=== PATIENT | female | born 1950 | race Caucasian/White ===

== ENCOUNTER 2017-06-07 16:33 | Observation (INO) | payer OTHER ==
--- NOTE | 2017-06-07 16:57 | CPEKG ---
Heart Rate: 78 RR Interval: 769 P-R Interval: 160 QRSD Interval: 84 QT Interval: 368 QTC Interval: 420 P [place]: 72 QRS [place]: 50 T Wave [place]: 49 EKG Severity - NORMAL ECG - EKG Impression: SINUS RHYTHM Electronically Signed By: Cara Arroyo 07-Jun-2017 23:12:08
[2017-06-07] MEDS ORDERED: NITROGLYCERIN 0.4 MG BTL SL PRN (17:15)
--- NOTE | 2017-06-07 17:15 | EDPHY ---
HPI/HX/ROS/PE/MDM Narrative: CHIEF COMPLAINT: Chest pain, high blood pressure HISTORY OF PRESENT ILLNESS: The patient is a 66 y/o female with a history of hypertension arriving with her son for chest pain and high blood pressure. A week ago, on Friday, May 31, the patient flew to [place]. On Friday, she began having chest pain. She took her blood pressure and found it to be 189/100. She went to an ED in [place], which admitted her with a blood pressure of 205/115. They found her troponin to be negative and advised a stress test. She decided to wait until she returned to [place] for a stress test. Her blood pressure was high on Friday and the doctor in [place] advised her to double her losartan. For the next few days she had blood pressures in the 140s and intermittent chest pain. She returned to [place] today and had worsened chest pain and high blood pressure prompting her visit. She had associated nausea on Friday. She denies vomiting or other associated symptoms. The pain occurs at rest and is not worse with exertion. She takes a baby aspirin daily. She denies history of blood clots or diabetes. No fever, chills, shortness of breath, palpitations, vomiting, diarrhea, urinary complaints, headache, lightheadedness. REVIEW OF SYSTEMS: Aside from elements discussed in the HPI, a comprehensive 10-point review of systems was reviewed and is negative. PAST MEDICAL HISTORY: Hypertension SOCIAL HISTORY: Son at bedside, lives in [place], visited [place] VITAL SIGNS: Reviewed by me GENERAL: Well-developed, well-nourished, resting comfortably in no respiratory distress. HEENT: Atraumatic. Eyes: No icterus, no injection. Mouth: moist mucous membranes. No erythema or lesions. Neck: supple with no adenopathy. LUNGS: Clear to auscultation bilaterally, no wheezes, rhonchi or rales. CARDIAC: Regular rate and rhythm, no rubs, murmurs or gallops. ABDOMEN: Soft, nontender, nondistended, bowel sounds normal. BACK: No CVA tenderness. EXTREMITIES: No trauma. No edema. Range of motion is normal throughout. NEURO: Alert and oriented, grossly nonfocal. SKIN: Warm and dry, no rash. PSYCHIATRIC: Normal mentation, no agitation. ED Course: The patient presents with chest pain and high blood pressure. She has had these symptoms intermittently for almost a week and was advised to have a stress test. She elected to wait on the stress test. Plan for EKG, cardiac labs, and chest X-ray. Her EKG is normal sinus rhythm. Labs are normal. Troponin is negative. I feel that she needs admission. I spoke to the hospitalist service regarding admission for this patient. They agree to admit. I spoke with this patient regarding the results of her workup. She agrees to this course of action. 10pm: Due to the bed situation in the hospital the patient will likely remain in the emergency department awaiting an inpatient bed. 2nd troponin was ordered by myself. Patient is aware of the situation. MDM: After history and physical examination, the differential for chest pain was considered, including but not limited to, myocardial ischemia, acute coronary syndrome, pulmonary embolus, chest wall pain, pleural inflammation and pulmonary infectious causes. - Data Points Imaging Results: Imaging Impressions Chest X-Ray 06/07/17 17:15 Impression: Clear lungs. No acute process. Laboratory Results: Laboratory Results 06/07/17 18:20 06/07/17 18:20 06/07/17 06/07/17 18:20 18:20 WBC 7.46 10^3/uL 10^3/uL (3.80-9.50) RBC 4.25 10^6/uL 10^6/uL (4.18-5.33) Hgb 14.4 g/dL g/dL (12.6-16.3) Hct 42.2 % % (38.0-47.0) MCV 99.3 fL fL (81.5-99.8) MCH 33.9 pg pg (27.9-34.1) MCHC 34.1 g/dL g/dL (32.4-36.7) RDW 12.3 % % (11.5-15.2) Plt Count 263 10^3/uL 10^3/uL (150-400) MPV 8.7 fL fL (8.7-11.7) Neut % (Auto) 62.9 % % (39.3-74.2) Lymph % (Auto) 25.7 % % (15.0-45.0) [place] % (Auto) 9.2 % % (4.5-13.0) Eos % (Auto) 1.3 % % (0.6-7.6) Baso % (Auto) 0.5 % % (0.3-1.7) Nucleat RBC Rel Count 0.0 % % (0.0-0.2) Absolute Neuts (auto) 4.68 10^3/uL 10^3/uL (1.70-6.50) Absolute Lymphs (auto) 1.92 10^3/uL 10^3/uL (1.00-3.00) Absolute Monos (auto) 0.69 10^3/uL 10^3/uL (0.30-0.80) Absolute Eos (auto) 0.10 10^3/uL 10^3/uL (0.03-0.40) Absolute Basos (auto) 0.04 10^3/uL 10^3/uL (0.02-0.10) Absolute Nucleated RBC 0.00 10^3/uL 10^3/uL (0-0.01) Immature Gran % 0.4 % % (0.0-1.1) Immature Gran # 0.03 10^3/uL 10^3/uL (0.00-0.10) Sodium 146 mEq/L H mEq/L (135-145) Potassium 4.0 mEq/L mEq/L (3.5-5.2) Chloride 108 mEq/L mEq/L (97-110) Carbon Dioxide 27 mEq/l mEq/l (22-31) Anion Gap 11 mEq/L mEq/L (8-16) BUN 20 mg/dL mg/dL (7-23) Creatinine 0.6 mg/dL mg/dL (0.6-1.0) Estimated GFR > 60 Glucose 106 mg/dL H mg/dL (70-100) Calcium 9.9 mg/dL mg/dL (8.5-10.4) Creatine Kinase 60 IU/L IU/L (0-156) CK-MB (CK-2) Fraction 2.13 ng/mL ng/mL (0.00-3.19) Troponin I < 0.012 ng/mL ng/mL (0.000-0.034) General Time Seen by Provider: 06/07/17 16:54 Initial Vital Signs: Initial Vital Signs Temperature (C) 37.0 C 06/07/17 16:37 Heart Rate 88 06/07/17 16:37 Respiratory Rate 16 06/07/17 16:37 Blood Pressure 189/100 H 06/07/17 16:37 O2 Sat (%) 99 06/07/17 16:37 O2 Delivery Mode Room Air Allergies/Adverse Reactions: azithromycin Allergy (Verified 06/07/17 19:28) Rash Home Medications: Medication Instructions Recorded Acetaminophen [Tylenol ES 500 mg 500 mg PO Q6 PRN 06/07/17 (*)] Ascorbic Acid [Vitamin C 500 mg 500 mg PO DAILY 06/07/17 (*)] Carvedilol [Coreg (*)] 6.25 mg PO BIDMEAL 06/07/17 Cholecalciferol Vit D3 [Vitamin D3 1,000 units PO DAILY 06/07/17 (*)] Cyanocobalamin [Vitamin B12 (*)] 1,000 mcg PO DAILY 06/07/17 Losartan Potassium [Cozaar 50 mg 100 mg PO DAILY 06/07/17 (*)] Ranitidine HCl [Zantac 75] 75 mg PO BID PRN 06/07/17 Departure - Departure Disposition: [facility] Inpatient Acute Clinical Impression: rule out acute coronary syndrome Hypertension Qualifiers: Hypertension type: unspecified Qualified Code(s): I10 - Essential (primary) hypertension Chest pain Qualifiers: Chest pain type: unspecified Qualified Code(s): R07.9 - Chest pain, unspecified Condition: Fair Report Scribed for: Cara Arroyo Report Scribed by: Ashley Guerrero Date of Report: 06/07/17 Time of Report: 17:18 Physician Review and Approval Statement: Portions of this note were transcribed by a medical pathologist. I personally performed a history, physical exam, medical decision making, and confirmed accuracy of information the transcribed note.
[2017-06-07 18:32] LABS: PLATELET COUNT 263 10^3/uL (150-400)
[2017-06-07 18:43] LABS: CREATINE KINASE 60 IU/L (0-156)
[2017-06-07] MEDS ORDERED: ACETAMINOPHEN 325 MG TAB PO PRN (22:36)
[2017-06-07] MEDS ORDERED: ONDANSETRON 4 MG/2 ML VIAL IVP PRN (22:36)
[2017-06-07] MEDS ORDERED: HYDROCODONE/APAP 5/325 TAB PO PRN (22:36)
[2017-06-08] MEDS ORDERED: hydrALAZINE 20 MG/ML VIAL IVP PRN (00:25)
--- NOTE | 2017-06-08 00:31 | PDGENHP ---
History and Physical - Chief Complaint chest pain - History of Present Illness Source - patient provides history appears reliable. EMR reviewed. Patient's discharge packet from [facility] and [place] also reviewed. HPI - pleasant 66-year-old female past medical history of HTN, GERD who presents emergency department today with complaints of 1 day history of chest pain. Patient reports she has had a history of intermittent similar chest "twinges "on the left side of her chest. She traveled to [place] to visit with family. On 06 02 17 patient presented to the emergency department in [place] for evaluation of her chest pain. She had initial cardiac rule out but declined to stay for a stress test at that time. Patient reports her initial blood pressure on presentation there was 205/115. She denies any associated shortness of breath dizziness palpitations diaphoresis or nausea. Patient without any history of orthopnea, PND, lower extremity edema. Patient is currently on losartan 100 mg p.o. daily and Coreg 6.25mg twice daily. Family history is significant for father with history of CAD without stents at age 60s, HTN. Today patient return from [place]. She reports that she carried her case up a flight and half of stairs sometime data labs before onset of her symptoms which occurred at rest today approximately 12:30 p.m. patient without any associated symptoms or radiating pain. Patient did check her blood pressure at home systolic was noted to be 189. She denied any headache nausea vomiting shortness of breath. Patient presented to the emergency department this afternoon when her chest pain would not resolve. History Information - Allergies/Home Medication List Allergies/Adverse Reactions: azithromycin Allergy (Verified 06/07/17 19:28) Rash Home Medications: Acetaminophen [Tylenol ES 500 mg (*)] 500 mg PO Q6 PRN 06/07/17 [Last Taken ] Ascorbic Acid [Vitamin C 500 mg (*)] 500 mg PO DAILY 06/07/17 [Last Taken ] Carvedilol [Coreg (*)] 6.25 mg PO BIDMEAL 06/07/17 [Last Taken 06/07/17 AM] Cholecalciferol Vit D3 [Vitamin D3 (*)] 1,000 units PO DAILY 06/07/17 [Last Taken 06/04/17] Cyanocobalamin [Vitamin B12 (*)] 1,000 mcg PO DAILY 06/07/17 [Last Taken ] Losartan Potassium [Cozaar 50 mg (*)] 100 mg PO DAILY 06/07/17 [Last Taken 06/07] Ranitidine HCl [Zantac 75] 75 mg PO BID PRN 06/07/17 [Last Taken Unknown] I have personally reviewed and updated: family history, medical history, social history, surgical history - Past Medical History Additional medical history: htn. gerd - Surgical History Additional surgical history: retinal detatchment - Family History Additional family history: father - CAD no stents/angina, HTN. mother - thyroid disease, cervical ca, Parkinson's. brother - HTN. son - healthy - Social History Smoking Status: Never smoked Alcohol Use: Occasionally Drug Use: None Additional social history: lives alone. COR - DNI. okay with cardiac resuscitation. Son Juan Luis Martins to act as proxy if needed. Review of Systems Review of Systems: ROS: 10pt was reviewed & negative except for what was stated in HPI & below Constitutional: Denies: chills, fever EENMT: Reports: nose congestion, other (sinus). Denies: sore throat Cardiac: Reports: chest pain. Denies: edema, lightheadedness, palpitations Respiratory: Reports: no symptoms. Denies: cough, shortness of breath Gastrointestinal: Reports: no symptoms Genitourinary: Reports: no symptoms Muscolosketal: Reports: no symptoms Skin: Reports: no symptoms Neurological: Reports: anxiety (situational to today only), numbness ( occasional left fingers, left ankle). Denies: emotional problems Physical Exam Physical Exam: Selected Entries 06/07/17 16:37 Blood Pressure Automatic Method Heart Rate 88 Respiratory 16 Rate O2 Sat (%) 99 Temperature (C) 37.0 C Blood Pressure 189/100 H Mean Arterial 129 H Pressure (MAP) O2 Delivery Room Air Mode Temperature Oral Source Temp Pulse Resp BP Pulse Ox 36.4 C 68 18 160/99 H 98 06/07/17 20:00 06/07/17 20:00 06/07/17 20:00 06/07/17 20:00 06/07/17 20:00 Constitutional: no apparent distress, No chronically ill appearing, No uncomfortable Eyes: PERRL, EOMI, No scleral injection Ears, Nose, Mouth, Throat: moist mucous membranes, no oral mucosal ulcers Cardiovascular: regular rate and rhythym, no murmur, rub, or gallop, No edema Peripheral Pulses: 2+: dorsalis-pedis (R), dorsalis-pedis (L) Respiratory: no respiratory distress, no rales or rhonchi, clear to auscultation Gastrointestinal: normoactive bowel sounds, soft, non-tender abdomen, no palpable masses Genitourinary: no bladder tenderness, No sanabria in urethra Skin: warm, normal color, no rashes or abrasions Musculoskeletal: full muscle strength, No generalized weakness Neurologic: AAOx3, sensation intact bilaterally, other (grossly nonfocal. ), No facial droop Psychiatric: interacting appropriately, not anxious, not encephalopathic, thought process linear Lab Data & Imaging Review 06/07/17 18:20 06/07/17 18:20 WBC 7.46 10^3/uL (3.80-9.50) 06/07/17 18:20 RBC 4.25 10^6/uL (4.18-5.33) 06/07/17 18:20 Hgb 14.4 g/dL (12.6-16.3) 06/07/17 18:20 Hct 42.2 % (38.0-47.0) 06/07/17 18:20 MCV 99.3 fL (81.5-99.8) 06/07/17 18:20 MCH 33.9 pg (27.9-34.1) 06/07/17 18:20 MCHC 34.1 g/dL (32.4-36.7) 06/07/17 18:20 RDW 12.3 % (11.5-15.2) 06/07/17 18:20 Plt Count 263 10^3/uL (150-400) 06/07/17 18:20 MPV 8.7 fL (8.7-11.7) 06/07/17 18:20 Neut % (Auto) 62.9 % (39.3-74.2) 06/07/17 18:20 Lymph % (Auto) 25.7 % (15.0-45.0) 06/07/17 18:20 [place] % (Auto) 9.2 % (4.5-13.0) 06/07/17 18:20 Eos % (Auto) 1.3 % (0.6-7.6) 06/07/17 18:20 Baso % (Auto) 0.5 % (0.3-1.7) 06/07/17 18:20 Nucleat RBC Rel Count 0.0 % (0.0-0.2) 06/07/17 18:20 Absolute Neuts (auto) 4.68 10^3/uL (1.70-6.50) 06/07/17 18:20 Absolute Lymphs (auto) 1.92 10^3/uL (1.00-3.00) 06/07/17 18:20 Absolute Monos (auto) 0.69 10^3/uL (0.30-0.80) 06/07/17 18:20 Absolute Eos (auto) 0.10 10^3/uL (0.03-0.40) 06/07/17 18:20 Absolute Basos (auto) 0.04 10^3/uL (0.02-0.10) 06/07/17 18:20 Absolute Nucleated RBC 0.00 10^3/uL (0-0.01) 06/07/17 18:20 Immature Gran % 0.4 % (0.0-1.1) 06/07/17 18:20 Immature Gran # 0.03 10^3/uL (0.00-0.10) 06/07/17 18:20 Sodium 146 mEq/L (135-145) H 06/07/17 18:20 Potassium 4.0 mEq/L (3.5-5.2) 06/07/17 18:20 Chloride 108 mEq/L (97-110) 06/07/17 18:20 Carbon Dioxide 27 mEq/l (22-31) 06/07/17 18:20 Anion Gap 11 mEq/L (8-16) 06/07/17 18:20 BUN 20 mg/dL (7-23) 06/07/17 18:20 Creatinine 0.6 mg/dL (0.6-1.0) 06/07/17 18:20 Estimated GFR > 60 06/07/17 18:20 Glucose 106 mg/dL (70-100) H 06/07/17 18:20 Calcium 9.9 mg/dL (8.5-10.4) 06/07/17 18:20 Creatine Kinase 60 IU/L (0-156) 06/07/17 18:20 CK-MB (CK-2) Fraction 2.13 ng/mL (0.00-3.19) 06/07/17 18:20 Troponin I < 0.012 ng/mL (0.000-0.034) 06/07/17 18:20 Imaging Review: PA and Lateral Chest Indication: Chest Pain. Comparison: Two-view chest dated March 04, 2014 Findings: The lungs are clear. Heart size is normal. No edema, pneumothorax or effusion. Minimal levocurvature of the low thoracic spine is unchanged. Impression: Clear lungs. No acute process. Visualized and Interpreted imaging results: Yes Visualized and Interpreted EKG results: Yes EKG Interpretation: Positive for: normal sinsus rhythm EKG additional interpertation: NSR 70s. <1mm st depression aVL. similar EKG reviewed from 02/2014 unchanged. Assessment & Plan Assessment: 66-year-old female with history of HTN, GERD 1. Chest pain (Acute) - atypical symptoms. ddx including ACS vs reflux vs msk vs less likely PE (Wells score 0). HEART score 3 with risk for FHx, HTN, HLD, age. initial ekg and troponin neg. continue to trend. anticipate stress in AM. holding patient coreg. 2. benign essential Hypertension (Acute) - Patient with variable blood pressures but admits she has not checked on a regular basis. Discussed option with the patient who monitor home blood pressures as well as maintain a diet journal. She reports some history of variable salt load in particular and seems to be associated with her episodes of hypertensive urgency. Patient is amenable to continue with the losartan and Coreg at discharge. Holding beta uyen in anticipation of likely stress test in the morning. chest TSH in AM. 3. HLD - patient was discharged last week with rx for atorvastatin for " slightly elevated" lipid panel completed in [place] last week. Patient amenable to follow up with her PCP in lieu of repeating a lipid panel that was drawn this week. At this time patient has declined to consider using statins desires to follow up with her PCP. she would like to make lifestyle and dietary changes and follow up. she is unsure if lipid panel drawn was fasting. she reports no previous history of HLD and recent fasting lipid panel completed within the last few months with her PCP. will try to obtain outside records. 4. hypernatremia - minimall elevated. likely related to hypovolemia with patient recent traveling. PO hydration. repeat bmp in AM. FEN - PO hydration NPO after midnight for possible stress. electrolyte replacement if needed. PPX - SCDs. lovenox. COR - DNI. pt amenable to cardiac resuscitation. Dispo - Admit to OBS with cardiac monitoring.
[2017-06-08 05:22] LABS: PLATELET COUNT 263 10^3/uL (150-400)
[2017-06-08 07:21] VITALS: RESP 19
--- NOTE | 2017-06-08 08:19 | HOSPPROG ---
Hospitalist Progress Note Objective: Vital Signs Temp Pulse Resp BP Pulse Ox 36.6 C 68 19 138/91 H 97 06/08/17 07:20 06/08/17 07:20 06/08/17 07:20 06/08/17 07:20 06/08/17 07:20 Laboratory Results 06/08/17 05:01 06/08/17 05:01 06/07/17 06/08/17 06/09/17 05:59 05:59 05:59 Intake Total 0 Balance 0 Selected Entries 06/07/17 06/08/17 06/08/17 20:00 02:13 02:42 Blood Pressure 160/99 H 147/90 H 146/90 H 06/08/17 06/08/17 03:31 07:20 Blood Pressure 151/91 H 138/91 H ICD10 Worksheet Patient Problems: Problems Problem Status Onset Hypertension Acute Chest pain Acute
[2017-06-08] MEDS ORDERED: ENOXAPARIN 40 MG/0.4 ML SYR SC SCH (09:00)
[2017-06-08] MEDS ORDERED: CHOLECALCIFEROL VIT D3 1,000 UNITS TAB PO SCH (09:00)
[2017-06-08] MEDS ORDERED: CYANO/VITAMIN B12 1000 MCG TAB PO SCH (09:00)
[2017-06-08] MEDS ORDERED: LOSARTAN POTASSIUM 50 MG TAB PO SCH (09:00)
[2017-06-08 11:16] VITALS: BP 137/88; PULSE 78; TEMP 97.8; O2SAT 96
--- NOTE | 2017-06-08 12:04 | ASMTCMCOM ---
CM Note CM Note Notes: Patient medically cleared for dc to home independent. No needs identified. CM avaiabke should needs arise. Date Signed: 06/08/2017 12:03 PM Electronically Signed By:Susannah Nicole RN
--- NOTE | 2017-06-08 16:58 | ASDISCHSUM ---
Discharge Information Plan Status:Home with No Needs Medically Cleared to Leave:06/07/2017 Discharge Date:06/08/2017 01:30 PM CM D/C Disposition:Home, Routine, Self-Care ADT D/C Disposition:Home, Routine, Self-Care Projected Discharge Date:06/08/2017 01:30 PM Transportation at D/C: Discharge Delay Reason: Follow-Up Date:06/08/2017 01:30 PM Discharge Slot: Final Diagnosis: Placement Information Patient Contact Information Contact Name:SANDRA Relationship:Royal Address: City: [facility] Phone: [facility]/[address]xuan Code: Email: Financial Information Financial Class:HMO and PPO Plans Primary Plan Desc:[employer] Primary Plan Number:[id number] Secondary Plan Desc: Secondary Plan Number: Assessment Information [facility] CM Progress Note CM Note CM Note Notes: Patient medically cleared for dc to home independent. No needs identified. CM avaiabke should needs arise. Date Signed: 06/08/2017 12:03 PM Electronically Signed By:Susannah Nicole RN Intervention Information
--- NOTE | 2017-06-08 17:22 | GDS ---
[f rep st] DISCHARGE SUMMARY NEW AND ACUTE DIAGNOSES ON THIS ADMISSION: 1. Uncontrolled hypertension. 2. Chest pain. No evidence of acute cardiac ischemia. 3. Hypernatremia. 4. Hyperlipidemia. 5. Gastroesophageal reflux disease, ongoing treated with Zantac. CONSULTATIONS: None. PROCEDURES: None. HOSPITAL COURSE: 66-year-old female, who has a known prior history of hypertension, presented with a complaint of chest pain and was noted to have significant hypertension in the 180s and 190s. Her el evated pressure has been known and was noted previously at a visit in [place], [place]. At t hat time she was taking losartan 50 mg daily, and at that visit in [place], it was increased to 10 0 mg daily. Today she presented with a complaint of chest pain. Serial troponins were all normal. ECG showed no evidence of cardiac ischemia or ST-segment elevation. Her home medications were restar mae, and her blood pressure declined but did not fully normalize. Her heart rate was in the 50s and 60s and thus, her beta uyen was not increased. As she continued to have hypertension despite increasing losartan, a third medication of Norvasc will be added to her outpatient medications. I have discussed her followup and that she needs to see her physicians for ongoing management of not only her hypertension, but possibly cardiac risk stratifica tion. She has an appointment with her PCP tomorrow and has been seen by Cardiology previously. Her hypernatremia was felt secondary to simply limited free water intake, and I have encouraged her to dr ink free water. Patient has a known history, by her report, of a hiatal hernia, and she has had 20 years of reflux on an intermittent basis. I have also encouraged her at discharge to be seen by gastroenterology. DISCHARGE MEDICATIONS: New medications: Will be Tylenol for pain and amlodipine 2.5 mg daily. Her continue medications are Cozaar 100 mg daily, carvedilol 6.25 mg b.i.d., vitamin B12, vitamin D3, vitamin C, and Zantac 75 mg b.i.d. PLAN: The patient will be discharged to be seen by Dr. Nellie Harvey in 1-2 days. I have suggested a followup with Dr. Darren Shea in the next 1-2 months for cardiac risk stratification. In addition, I suggest that she be seen by Gastroenterology for evaluation of her persistent reflux problem. I torres ve indicated the possibility of things such as Helicobacter, and then she may need an EGD. The refer ral for GI can be done through her PCP, Dr. Harvey. DIET: The patient has been told to follow a cardiac low-salt diet. DISCHARGE CONDITION: Her condition was good at the time of discharge. TIME OF DISCHARGE: 45 minutes. /[id number]/MODL
== END 2017-06-08 13:30 | disposition home or self-care (01) ==
LOC: F3E 06-08 03:17
PROVIDERS: ADMIT Internal Medicine; ATTEND Internal Medicine Pulmonary Disease
DX: R07.89 Other chest pain (principal); I10 Essential (primary) hypertension; K21.9 Gastro-esophageal reflux disease without esophagitis; E78.5 Hyperlipidemia, unspecified; E87.0 Hyperosmolality and hypernatremia; Z82.49 Family history of ischemic heart disease and other diseases of the circulatory system
CPT/HCPCS: 71046; 93005; G0378; J1650

== ENCOUNTER → 2017-06-19 | Outpatient (CLI) | payer OTHER | LOC: FIMAGING 06:45 | PROVIDERS: ATTEND Family Medicine | DX: I10 Essential (primary) hypertension (principal) ==

== ENCOUNTER → 2017-10-15 | Outpatient (CLI) | payer OTHER, MEDICARE | LOC: BHFA 08:30 | PROVIDERS: ATTEND Internal Medicine Cardiovascular Disease | DX: I10 Essential (primary) hypertension (principal) ==